=== PATIENT | female | born 1980 | race Caucasian/White ===

== ENCOUNTER 2017-05-06 08:23 | Emergency (ER) | payer BC ==
[2017-05-06] MEDS ORDERED: Ibuprofen TAB* 800 MG PO ONE (08:46)
--- NOTE | 2017-05-06 09:23 | RAD ---
INDICATION: Atraumatic left shoulder pain COMPARISON: None. TECHNIQUE: 4 views of the left shoulder were obtained. FINDINGS: The adequately corticated bones are in normal alignment. Joint spaces appear maintained. No fracture, dislocation or focal bony abnormality is seen. IMPRESSION: Normal radiograph of the left shoulder. If the patient's symptoms persist, follow-up imaging is recommended.
[2017-05-06 09:53] VITALS: BP 117/85
--- NOTE | 2017-05-06 18:16 | ED ---
Jn Sorensen Angela, scribed for Fran Canada MD on 05/06/17 at 0842 . Upper Extremity Pain - HPI Summary HPI Summary: This pt is a 37 y/o female presenting to [facility] c/o left shoulder pain x3 days. Pt reports she bumped her left "funny bone" somewhat hard approximately 2 months ago. Since then she has noticed her left deltoid has been sore. Pt additionally c/o weakness and pain in left arm that has now radiated up to her shoulder. She notes some minimal elbow pain. She denies any recent trauma or injury. Pt admits that she may be sleeping on her left side a little bit. Pt has taken ibuprofen with relief but after a few hours the pain returns. - History of Current Complaint Chief Complaint: EDExtremityUpper Stated Complaint: LT SHOULDER PAIN Hx Obtained From: Patient Hx Last Menstrual Period: 04/01/12 Mechanism Of Injury: Other - no recent trauma or injury Onset/Duration: Started Days Ago, Still Present Timing: Constant, Lasting Days Severity Currently: Moderate Pain Location: Shoulder - left, Arm - left Alleviating Factor(s): OTC Meds - ibuprofen Associated Signs & Symptoms: Positive: Weakness - in left arm, Other - minimal elbow pain - Allergies/Home Medications Allergies/Adverse Reactions: Allergies Allergy/AdvReac Type Severity Reaction Status Date / Time No Known Allergies Allergy Verified 05/06/17 08:34 PMH/Surg Hx/FS Hx/Imm Hx Endocrine/Hematology History: Denies: Hx Diabetes Cardiovascular History: Denies: Hx Hypertension Infectious Disease History: No Infectious Disease History: Denies: Traveled Outside the [place] in Last 30 Days - Family History Known Family History: Negative: Hypertension, Diabetes - Social History Alcohol Use: Occasionally Substance Use Type: Reports: None Smoking Status (MU): Never Smoked Tobacco Review of Systems Negative: Fever, Chills Eyes: Negative ENT: Negative Cardiovascular: Negative Respiratory: Negative Gastrointestinal: Negative Musculoskeletal: Other - left arm pain, left shoulder pain, left deltoid pain, minimal left elbow pain Positive: Weakness - left arm All Other Systems Reviewed And Are Negative: Yes Physical Exam - Summary Physical Exam Summary: VITAL SIGNS: Reviewed. GENERAL: Patient is a well-developed and nourished female who is lying comfortable in the stretcher. Patient is not in any acute respiratory distress. HEAD AND FACE: No signs of trauma. No ecchymosis, hematomas or skull depressions. No sinus tenderness. EYES: PERRLA, EOMI x 2, No injected conjunctiva, no nystagmus. EARS: Hearing grossly intact. Ear canals and tympanic membranes are within normal limits. MOUTH: Oropharynx within normal limits. NECK: Supple, trachea is midline, no adenopathy, no JVD, no carotid bruit, no c- spine tenderness, neck with full ROM. CHEST: Symmetric, no tenderness at palpation LUNGS: Clear to auscultation bilaterally. No wheezing or crackles. CVS: Regular rate and rhythm, S1 and S2 present, no murmurs or gallops appreciated. ABDOMEN: Soft, non-tender. No signs of distention. No rebound no guarding, and no masses palpated. Bowel sounds are normal. EXTREMITIES: FROM in all major joints, no edema, no cyanosis or clubbing. LUE: decreased ROM. Decrease in abduction at about 90 degrees. There is no swelling. No hematoma and no deformity. NEURO: Alert and oriented x 3. No acute neurological deficits. Speech is normal and follows commands. SKIN: Dry and warm Triage Information Reviewed: Yes Vital Signs On Initial Exam: Initial Vitals Temp Pulse Resp BP Pulse Ox 98.4 F 63 16 129/82 100 05/06/17 08:29 05/06/17 08:29 05/06/17 08:29 05/06/17 08:29 05/06/17 08:29 Vital Signs Reviewed: Yes Diagnostics - Vital Signs Vital Signs Temp Pulse Resp BP Pulse Ox 05/06/17 08:29 98.4 F 63 16 129/82 100 - Laboratory Lab Statement: Any lab studies that have been ordered have been reviewed, and results considered in the medical decision making process. - Radiology Left shoulder XR Xray Interpretation: No Acute Changes - IMPRESSION: Normal radiograph of the left shoulder. If the patient's symptoms persist, follow-up imaging is recommended. ED physician has reviewed this radiology report and agrees. Radiology Interpretation Completed By: Radiologist Re-Evaluation - Re-Evaluation First Eval Re-Evaluation Time: 09:46 Comment: I reviewed the XR results with the pt. Course/Dx - Course Assessment/Plan: This pt is a 37 y/o female presenting to [facility] c/o left shoulder pain x3 days. Pt reports she bumped her left "funny bone" somewhat hard approximately 2 months ago. Since then she has noticed her left deltoid has been sore. Pt additionally c/o weakness and pain in left arm that has now radiated up to her shoulder. She notes some minimal elbow pain. She denies any recent trauma or injury. Pt admits that she may be sleeping on her left side a little bit. Pt has taken ibuprofen with relief but after a few hours the pain returns. Left shoulder XR shows normal radiograph of the left shoulder. If the patient's symptoms persist, follow-up imaging is recommended. I believe the pt has bursitis vs a rotator cuff injury. The pt was given ibuprofen in the ED and her symptoms improved. I offered the pt a shoulder immobilizer but she declined. Therefore, she will be discharged home with follow up from her PCP. If she continues to have pain, she will follow up with orthopedics. - Diagnoses Differential Diagnosis/HQI/PQRI: Positive: Bursitis, Contusion, Fracture (Closed ), Strain, Sprain Provider Diagnoses: Shoulder pain Discharge - Discharge Plan Condition: Stable Disposition: HOME Patient Education Materials: Shoulder Pain (ED) Referrals: Linda Callahan MD [Medical Doctor] - Additional Instructions: Please follow up with your primary care provider. RETURN TO THE ED FOR ANY WORSENING OR NEW SYMPTOMS. The documentation as recorded by the Jn tenorio Angela accurately reflects the service I personally performed and the decisions made by me, Fran Canada MD.
== END 2017-05-06 09:52 | disposition home or self-care (01) ==
LOC: ED 08:23
DX: M25.512 Pain in left shoulder (principal); R53.1 Weakness; M79.602 Pain in left arm
CPT/HCPCS: 99282; A9270-GY

== ENCOUNTER 2018-03-16 07:09 | Day surgery (SDC) | payer BC ==
[~2018-03-16 07:09] MED LIST: Buffered Lidocaine 0.9% SYRIN* 5 ML/SYR SYRINGE INTRADERM ONE; Dexamethasone IV* 4 MG/ML 1 ML (4 MG) IV SLOW PU ONE; Famotidine IV* 10 MG/ML 2 ML (20 mg) IV ONE
[2018-03-16] MEDS ORDERED: ceFAZolin 2 GM PREMIX in ORs 2 GM/50 ML BAG IVPB ONE (07:32)
[2018-03-16] MEDS ORDERED: Dexamethasone IV* 4 MG/ML 1 ML (4 MG) ONE (07:32)
[2018-03-16] MEDS ORDERED: Famotidine IV* 10 MG/ML 2 ML (20 mg) ONE (07:32)
[2018-03-16] MEDS ORDERED: Lidocaine 2% PF * 5 ML VIAL ONE (08:10)
[2018-03-16] MEDS ORDERED: Rocuronium* 10 MG/ML VIAL ONE (08:10)
[2018-03-16] MEDS ORDERED: Propofol* 10 MG/ML 20 ML BTL IV PUSH ONE (08:10)
[2018-03-16 08:12] LABS: Hematocrit 38 % (35-47); Hemoglobin 12.8 g/dl (12.0-16.0); Mean Corpuscular HGB Conc 34 g/dl (31-36); Mean Corpuscular Hemoglobin 31 pg (27-31); Mean Corpuscular Volume 92 fL (80-97); Platelet Count 191 10^3/ul (150-450); Red Blood Count 4.17 10^6/ul (4.00-5.40); Red Cell Distribution Width 13 % (10.5-15); White Blood Count 4.2 10^3/ul (3.5-10.8)
[2018-03-16] MEDS ORDERED: fentaNYL* 50 MCG/ML 2 ML VIAL (100 MCG VIAL) ONE (08:47)
[2018-03-16] MEDS ORDERED: HYDROcodone/ACETAMIN 5-325 MG* 1 TAB PO PRN (08:51)
[2018-03-16] MEDS ORDERED: DiMENhydriNATE IV* 50 MG/ML VIAL IV PUSH PRN (08:51)
[2018-03-16] MEDS ORDERED: Naloxone* 0.4 MG/ML 1 ML VIAL IV PRN (08:51)
[2018-03-16] MEDS ORDERED: fentaNYL* 50 MCG/ML 2 ML VIAL (100 MCG VIAL) IV PRN (08:51)
[2018-03-16] MEDS ORDERED: oxyCODONE/Acetamin 5/325 MG* TAB PO PRN (08:51)
[2018-03-16] MEDS ORDERED: Ketorolac INJ* 30 MG/ML 1 ML VIAL ONE (09:23)
[2018-03-16] MEDS ORDERED: Bupivacaine 0.25% SDV PF* 10 ML VIAL INJ ONE (09:24)
[2018-03-16] MEDS ORDERED: Bupivacaine 0.25% SDV* 30 ML ONE (09:39)
[2018-03-16] MEDS ORDERED: Ondansetron INJ* 2 MG/ML VIAL ONE (09:44)
[2018-03-16] MEDS ORDERED: Glycopyrrolate IV* 0.2 MG/ML 1 ML VIAL ONE (09:46)
[2018-03-16] MEDS ORDERED: Neostigmine Methylsulfate* 1 MG/ML 10 ML VIAL (1 mg/ml) ONE (09:46)
[2018-03-16] MEDS ORDERED: EPHEDrine (Pressors)* 50 MG/ML VIAL ONE (10:03)
[2018-03-16] MEDS ORDERED: Ibuprofen TAB* 600 MG PO PRN (10:35)
[2018-03-16 11:19] VITALS: BP 118/69
--- NOTE | 2018-03-16 21:38 | OP ---
CC: Dr. Caban, [facility]; Dr. Martinez, [facility] OPERATIVE REPORT: DATE OF OPERATION: 03/16/18 DATE OF : 76 SURGEON: Tanika Caban MD DEICER REPAIRER PNEUMATIC: Dr. Martinez. ANESTHESIOLOGIST: Dr. Zelaya. ANESTHESIA: General endotracheal anesthesia. PRE-OP DIAGNOSIS: Complex left ovarian cyst on ultrasound. POST-OP DIAGNOSIS: Complex left ovarian cyst on ultrasound. OPERATIVE PROCEDURE: Laparoscopic left salpingo-oophorectomy. ESTIMATED BLOOD LOSS: Minimal, less than 20 cc. SPECIMENS: Left ovary and fallopian tube. FLUIDS: Per Anesthesia. DRAINS: Rubio catheter drained 600 cc of clear urine. FINDINGS: Midline uterus, normal-appearing right ovary and fallopian tube, smooth walled, 5-cm left ovarian cyst central within the ovary. The cyst has sebaceous contents with hair consistent with a d ermoid. Normal-appearing left fallopian tube, normal-appearing appendix, normal-appearing liver edge . COMPLICATIONS: None. COUNTS: Sponge, lap, and needle counts were correct x2. CONDITION: The patient was brought to the recovery room awake and in stable condition. DESCRIPTION OF PROCEDURE: The patient was brought to the operating room. When general anesthesia wa s found to be adequate, the patient was prepped and draped in the usual sterile fashion in the dorsal supine position after a Rubio catheter was placed under sterile condition. A time-out was performed . The patient received prophylactic dose of IV antibiotics orthodontic laboratory technician to the OR. Marcaine was instille d in the infraumbilical fold. A 10-mm incision was made in the infraumbilical fold and the trocar wa s placed. The abdomen was insufflated. A 5-mm incision was made 2 cm above the symphysis pubis afte r Marcaine was instilled and a 5-mm trocar and sleeve were placed under direct visualization. The ab domen and pelvis were examined with the above findings noted. A second 5-mm trocar and sleeve were p laced under direct visualization after Marcaine was instilled in the left lower quadrant. The left o vary and tube were held with a blunt grasper and using LigaSure, the left ovary and fallopian tube we re excised along the infundibulopelvic ligament and the uteroovarian attachments. The ovary and fall opian tube were placed in the Endobag. There was no spillage. The Endobag was brought to the infraum bilical incision site and towels were placed around. The cyst was ruptured with a scalpel and the c yst contents were suctioned. The fluid was sebaceous, thick. There was hair noted and the bag was t hen able to be removed from the infraumbilical site with no spillage and sent to Pathology. The lapa roscope was replaced. Excellent hemostasis was noted. The abdomen and pelvis were irrigated and suc tioned. Once again, hemostasis was assured. The 5-mm trocars were removed. The laparoscope was rem laila. The infraumbilical fascia was closed using 0 Vicryl. No defect was palpated. There was some oozing from the left lower quadrant incision site. The bleeders were identified and cauterized. Exc ellent hemostasis was achieved. The skin was closed in a subcuticular fashion. Glue was placed at a ll 3 sites. The Rubio catheter was removed, and the patient was brought to the recovery room awake a nd in stable condition. [id number]/[facility] #: [id number]
== END 2018-03-16 14:20 | disposition home or self-care (01) ==
LOC: OR 07:09
PROVIDERS: ATTEND Obstetrics & Gynecology
DX: D27.1 Benign neoplasm of left ovary (principal); E03.9 Hypothyroidism, unspecified; Z87.891 Personal history of nicotine dependence
CPT/HCPCS: 36415; 81025; 85027; 86850; 86900; 86901; 88305; J0690; J1100; J1885; J2405; J2704; J2710; J3010; J3490

== ENCOUNTER 2018-05-16 11:59 | Emergency (ER) | payer BC ==
--- NOTE | 2018-05-16 14:01 | UC ---
Throat Pain/Nasal Los HPI - HPI Summary HPI Summary: 38 y/o female presents to the urgent care c/o fever sore throat, dry cough, nasal congestion w/ clear nasal discharge, body aches, ZULETA for the past 2 days. Pt had fever of 102.4F yesterday and she took Ibuprofen PO 400mg and it resolved. today she has not taking anything to alleviate symptoms. body aches and pain w/ swallowing is 5/10. Pt denies SOB, wheezing, abdominal pain, N/v/D. - History of Current Complaint Stated Complaint: SORE THROAT Time Seen by Provider: 05/16/18 13:59 Hx Obtained From: Patient Hx Last Menstrual Period: 04/01/12 Onset/Duration: Gradual Onset, Lasting Days - 2 days, Still Present, Worse Since - today Severity: Moderate Pain Intensity: 5 Pain Scale Used: 0-10 Numeric Cough: Nonproductive - dry Associated Signs & Symptoms: Positive: Dysphagia - mild, Sinus Discomfort, Nasal Discharge - clear, Fever - Epiglottits Risk Factors Epiglottis Risk Factors: Negative - Allergies/Home Medications Allergies/Adverse Reactions: Allergies Allergy/AdvReac Type Severity Reaction Status Date / Time latex Allergy Mild Rash And Verified 05/16/18 14:03 Itching PMH/Surg Hx/FS Hx/Imm Hx Previously Healthy: Yes Endocrine History: Hypothyroidism - Surgical History Surgical History: Yes Surgery Procedure, Year, and Place: LEEP PROCEDURE 2008 - Family History Known Family History: Positive: Hypertension, Diabetes Family History: hypothyrodism - Social History Occupation: Employed Full-time Lives: With Family Alcohol Use: Daily Alcohol Amount: WINE WITH DINNER Substance Use Type: None Smoking Status (MU): Former Smoker Amount Used/How Often: 1/2 PPD 6YRS When Did the Patient Quit Smoking/Using Tobacco: 2001 Review of Systems All Other Systems Reviewed And Are Negative: Yes Constitutional: Positive: Fever, Chills, Other - body aches Skin: Positive: Negative Eyes: Positive: Negative ENT: Positive: Sore Throat, Nasal Discharge - clear, Sinus Congestion Respiratory: Positive: Cough - dry Cardiovascular: Positive: Negative Gastrointestinal: Positive: Negative Genitourinary: Positive: Negative Motor: Positive: Negative Neurovascular: Positive: Negative Musculoskeletal: Positive: Negative Neurological: Positive: Headache Psychological: Positive: Negative Is Patient Immunocompromised?: No Physical Exam - Summary Physical Exam Summary: VITAL SIGNS: Reviewed. GENERAL: Patient is a well developed and nourished female who is sitting comfortable in the examining table. Patient is not in any acute respiratory distress. HEAD AND FACE: No signs of trauma. No ecchymosis, hematomas or skull depressions. No sinus tenderness. EYES: PERRLA, EOMI x 2, No injected conjunctiva, no nystagmus. No photophobia. EARS: Hearing grossly intact. Ear canals and tympanic membranes are within normal limits. Nose: edematous and erythematous nasal mucosa w/ clear nasal discharge. MOUTH: Positive no erythema, no tonsillar enlargement. Uvula in midline. NECK: Supple, trachea is midline, Positive anterior cervical lymphadenopathy, no JVD, no carotid bruit, no c-spine tenderness, neck with full ROM. No meningeal signs, no Kernig's or brudzinskis signs. CHEST: Symmetric, no tenderness at palpation LUNGS: Clear to auscultation bilaterally. No wheezing or crackles. CVS: Regular rate and rhythm, S1 and S2 present, no murmurs or gallops appreciated. ABDOMEN: Soft, non-tender. No signs of distention. No rebound no guarding, and no masses palpated. Bowel sounds are normal. EXTREMITIES: FROM in all major joints, no edema, no cyanosis or clubbing. NEURO: Alert and oriented x 3. No acute neurological deficits. Speech is normal and follows commands. SKIN: Dry and warm Triage Information Reviewed: Yes Throat Pain/Nasal Course/Dx - Course Course Of Treatment: 38 y/o female presents to the urgent care c/o fever sore throat, dry cough, nasal congestion w/ clear nasal discharge, body aches, ZULETA for the past 2 days. Pt had fever of 102.4F yesterday and she took Ibuprofen PO 400mg and it resolved. today she has not taking anything to alleviate symptoms. body aches and pain w/ swallowing is 5/10. Pt denies SOB, wheezing, abdominal pain, N/v/D. Hx obtained. Pt w/ a viral syndrome on examination. Rapid strep= negative, Rapid influenxa A&B=negative. Pt is febrile 101.3F. Pt given ibuprofen 800mg PO at the clinic by nurse. Pt felt better and temp decrease. Pt Rx ibuprofen PO to alleviates symptoms. Advised on hand washing. Pt advised to rest, increase fluid intake, eat well and avoid strenuous exercise. If symptoms do not improve or worsen advised to return to the urgent care or f/u with her PCP for further evaluation and treatment. D/C instructions explained. Pt understood and agreed with plan of care. - Differential Dx/Diagnosis Differential Diagnosis/HQI/PQRI: Influenza, Otitis Media, Pharyngitis, Sinusitis , Tonsillitis, URI Provider Diagnosis: Acute viral syndrome, Fever Discharge - Sign-Out/Discharge Documenting (check all that apply): Patient Departure - d/c home All imaging exams completed and their final reports reviewed: No Studies - Discharge Plan Condition: Stable Disposition: HOME Prescriptions: Ibuprofen TAB* [Motrin TAB* 800 MG] 800 mg PO Q6H PRN #30 tab PRN Reason: Fever Patient Education Materials: Viral Syndrome (ED) Forms: *Work Release Referrals: William Arzola MD [Primary Care Provider] - 2 Days Additional Instructions: 1-Please take ibuprofen PO q6-8hrs prn as instructed after meals to alleviate fever, pain and swelling. Increase fluid intake, eat well, rest and avoid strenuous exercise 2-If symptoms do not improve or worsen please return to the urgent care or f/u with your PCP 2-3 days for further evaluation and treatment. 3-If fever is not controlled w/ the Ibuprofen or Tylenol alternating and symptoms worsen please go immediately to the Er for further management - Billing Disposition and Condition Condition: STABLE Disposition: Home
[2018-05-16 14:09] VITALS: BP 129/69
[2018-05-16] MEDS: Ibuprofen TAB* 400 MG PO ONE (14:30)
== END 2018-05-16 14:50 | disposition home or self-care (01) ==
LOC: UCEAST 11:59
DX: B34.9 Viral infection, unspecified (principal); R50.9 Fever, unspecified; Z87.891 Personal history of nicotine dependence
CPT/HCPCS: 87651; 99212; A9270-GY; G0463